=== PATIENT | male | born 1955 | race American Indian/Alaskan Native ===

== ENCOUNTER 2021-11-22 07:32 | Emergency (ER) | payer OTHER ==
[~2021-11-22] VITALS: Ht 175.3 cm; Wt 81.7 kg
[2021-11-22] MEDS ORDERED: METFORMIN HCL500 MG PO (07:49)
[2021-11-22] MEDS ORDERED: CYCLOBENZAPRINE10 MG PO (09:03)
[2021-11-22] MEDS ORDERED: LIDODERM1 EACH TOP (09:03)
== END 2021-11-22 09:15 | disposition home or self-care (01) ==
LOC: ED 07:32
DX: M54.42 Lumbago with sciatica, left side (principal); E11.9 Type 2 diabetes mellitus without complications; Z79.84 Long term (current) use of oral hypoglycemic drugs
CPT/HCPCS: 36415; 72100; 80053; 85025; 96372; 99283-25; A9270; J1885; J8540